=== PATIENT | male | born 1950 | race Caucasian/White ===

== ENCOUNTER 2020-11-09 11:42 | Emergency (ER) | payer OTHER ==
[~2020-11-09] VITALS: Ht 177.8 cm; Wt 81.6 kg
--- NOTE | 2020-11-09 13:51 | Emergency Room Report ---
History of Present Illness General Chief Complaint: General Complaint Source: Patient, PMD (Lazaro Meadows MD) Present Illness HPI The patient presents requesting monoclonal antibody treatment. He tested + for Covid today. He had Covid vaccine #1 12 days ago. URI sy today. Mainly runny nose. He feels some achiness. No fever. No MONGE. Patient's risk factors are cardiac disease and age. Patient denies hypertension, diabetes or immune compromise disease. No fevers, chills, chest pain, palpitations, nausea, vomiting, diarrhea, dysuria, abdominal pain, rashes, depression, anxiety, visual changes, dizziness, headache. (Lazaro Meadows MD) Allergies: Coded Allergies: No Known Allergies (Unverified , 11/09/20) COVID-19 Screening Contact w/high risk pt: Yes Experienced COVID-19 symptoms?: No COVID-19 Testing performed NUT THREADER: Yes COVID-19 Screening: Positive COVID-19 COVID-19 Testing Source: nasal (Lazaro Meadows MD) Patient History Past Medical History: see triage record Past Surgical History: PTCA Social History: Denies: smoking Social History Narrative account financial manager Reviewed Nursing Documentation: PMH: Agreed; PSxH: Agreed (Lazaro Meadows MD) Review of Systems All Other Systems: negative except mentioned in HPI (Lazaro Meadows MD) Physical Exam Vital Signs Date Time Temp Pulse Resp B/P (MAP) Pulse Ox O2 Delivery O2 Flow Rate FiO2 11/09/20 13:30 98.1 86 16 140/80 (100) 98 Room Air Sp02 EP Interpretation: reviewed, normal General Appearance: well appearing, no apparent distress, GCS 15 Head: normocephalic Eyes: bilateral eye normal inspection, bilateral eye PERRL, bilateral eye EOMI ENT: moist mucus membranes Neck: normal inspection, full range of motion Respiratory: lungs clear, normal breath sounds Cardiovascular #1: regular rate, rhythm Cardiovascular #2: 2+ radial (R) Gastrointestinal: normal inspection Musculoskeletal: gait/station normal Neurologic: alert, grossly normal Psychiatric: mood/affect normal Skin: normal color, no rash, warm/dry (Lazaro Meadows MD) Medical Decision Making Diagnostic Impression: Primary Impression: COVID-19 Additional Impression: Monoclonal antibody infusion ER Course Patient presents for monoclonal antibody treatment after testing positive for COVID-19 and after receiving his first dose of vaccine 12 days ago. Patient's pulse oximetry is adequate and no laboratory or chest x-ray work-up is indicated at this time. There are risk factors. Discussed with PMD who wants BAM administered. Discussed risks and benefits of treatment with patient. BAM infused. Patient tolerated the infusion without difficulty. Signed out observation period with Dr. Fishman. (Lazaro Meadows MD) ER Course Assumed care of the patient from the previous provider at approximately 1530. Please refer to initial note for full history and physical exam. Briefly, 70-year-old male tested positive for COVID-19 today presented for monoclonal antibody infusion. Patient had received first COVID-19 vaccination dose last week. Patient has received infusion and monitored for 1 hour. No adverse effects noted. He will be discharged to follow-up with his PMD. Previous physician discussed delaying second COVID-19 vaccination dose given the Bamlanivimab infusion today. He can discuss this with his PMD as well. Discussed reasons to return to the ER. He understands and agrees with treatment plan (Pablo Fishman MD) Last Vital Signs Date Time Temp Pulse Resp B/P (MAP) Pulse Ox O2 Delivery O2 Flow Rate FiO2 11/09/20 14:27 97.7 134/83 90 11/09/20 14:27 90 Room Air 100 11/09/20 13:30 16 Status: improved (Lazaro Meadows MD) Disposition: HOME, SELF-CARE Condition: Improved Referrals: NON PHYSICIAN (PCP) Lazaro Meadows MD Nov 09, 2020 13:51 Pablo Fishman MD Nov 09, 2020 16:25
[2020-11-09] MEDS ORDERED: Bamlanivimab 700 MG in NS 275 ML IVPB SCH (14:00)
[2020-11-09] MEDS ORDERED: Bamlanivimab Fact Sheet MISC ONE (14:00)
[2020-11-09 14:27] VITALS: BP 134/83
== END 2020-11-09 14:50 | disposition home or self-care (01) ==
LOC: EMR 12:25
DX: U07.1 COVID-19 (principal); Z23 Encounter for immunization
CPT/HCPCS: 96365; 99284; J7050; Q0239